=== PATIENT | male | born 1980 | race Caucasian/White ===

== ENCOUNTER → 2018-02-14 | Outpatient (CLI) | payer OTHER ==
--- NOTE | 2018-02-14 19:42 | CONS ---
CONSULTATION DATE OF SERVICE: 02/14/2018 37-year-old gentleman has been evaluated in [facility] for obstructive sleep apnea- hypopnea syndrome. HISTORY OF PRESENT ILLNESS/SLEEP-WAKE EVALUATION: Patient originally was diagnosed with obstructive sleep apnea about 8 or 9 years ago, was started on treatment with CPAP and then he underwent UPPP and surgery for nasal septum deviation around 7 years ago. After the surgery he did not have polysomnogram done, but had CPAP retitration. He tried to continue to use his CPAP equipment after that, but presently he cannot use it taking his mask off. His sleep schedule from 10:30 p.m. to 5 a.m. on weekdays and from around 11:00 p.m. to 8:30 a.m. on weekends. Sometimes he has problem with falling asleep, but not more than for 30 minutes. He has TV set in bedroom. He preferred to sleep on the stomach position. Does not like to sleep on the back or side. His weight for last several years increased at least 10 pounds. He does snore, has episodes of stopped breathing during the sleep, awakenings from sleep with choking, tears, heartburn, gasping for air, restless legs, and 1 episode of nocturia. In the morning he wakes up tired, has difficulties to pay attention, worry about his sleep, has problems with memory, concentration, diabetes, depression, anxiety. [place] Sleepiness Scale today is significantly increased to 20. PAST MEDICAL HISTORY: None. ALLERGIES: None. PAST SURGICAL HISTORY: Septoplasty in fall of 2009 and at UPPP in 2010. MEDICATIONS: None. SOCIAL HISTORY: Positive for smoking in the past for about 6 years, quit 10 years ago. Alcohol consumption occasional. FAMILY HISTORY: Hypertension, snoring, mental illness. REVIEW OF SYSTEMS: Awakenings from sleep, sleepiness during the day. PHYSICAL EXAM: GENERAL gentleman without distress. VITAL SIGNS BP 149/77, HR 78, RR 16, height 5 feet 8 inches, weight 214, BMI 32.5, temperature 98.1 oxygen saturation on room air 94%. HEENT PERRLA, EOMI, evaluation of oropharynx showed status post UPPP. No uvula. NECK Supple, no JVD. Thyroid is not palpable. LUNGS Clear to percussion and to auscultation. Good air exchange. No wheezing or rhonchi. HEART S1, S2 regular. No murmurs, gallops, or rubs. ABDOMEN Soft and nontender. Bowel sounds are present. No organomegaly appreciated. EXTREMITIES No clubbing or cyanosis. 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 Cranial nerves 2 to 7 intact. There is no fasciculation or atrophy. noted. No focal deficits observed. IMPRESSION: 1. Snoring, witnessed episodes of stopped breathing during the sleep, history of obstructive sleep apnea in the past. Obstructive sleep apnea-hypopnea syndrome. 2. Mild obesity, BMI 32.5. 3. Significant excessive daytime sleepiness. [place] Sleepiness Scale increased to 20. Differential diagnosis should include hypersomnia also. 4. Status post uvulopalatopharyngoplasty, tonsillectomy and surgery for nasal septum deviation about 7 years ago. PLAN: 1. Polysomnography for evaluation of patient's breathing during sleep. 2. CPAP/BiPAP titration if sleep study confirms obstructive sleep apnea-hypopnea syndrome. 3. Preferable position during sleep on the side. 4. No driving if patient feels any sleepiness. 5. I will see patient for follow up visit to explain results of testing and following plan. Thank you very much for referring this patient for consultation. Sincerely, Delmar Naranjo MD, PhD, FAASM Diplomat of [place] [employer] [place] [employer] Steel [employer] of [facility] [place] MMODL / ENDERN: [id number] /
== END | disposition home or self-care (01) ==
LOC: SLEEP 13:52
PROVIDERS: ATTEND Internal Medicine
DX: G47.33 Obstructive sleep apnea (adult) (pediatric) (principal); E66.01 Morbid (severe) obesity due to excess calories; Z90.89 Acquired absence of other organs; Z99.89 Dependence on other enabling machines and devices; Z87.891 Personal history of nicotine dependence
CPT/HCPCS: 99211

== ENCOUNTER → 2018-04-04 | Outpatient (CLI) | payer OTHER ==
--- NOTE | 2018-04-04 18:56 | PN ---
PROGRESS NOTE DATE OF SERVICE: 04/04/2018 37-year-old gentleman who has been followed in Sleep Center for treatment of obstructive sleep apnea-hypopnea syndrome. Recently patient had CPAP titration because of difficulties with exhalation. He was switched to BiPAP and subsequently finished titration with BiPAP. I ordered for him a new BiPAP unit recently. Patient trying to use his CPAP unit which is in the range of 11-15 cm of water. Automatic regimen but he can not use it because he has difficulties with exhalation. MEDICATIONS: None. PHYSICAL EXAM: Patient in no distress, BP 136/87, HR 59, RR 16, weight 218.4, temp 97.9 oxygen saturation room air 98%. [place] Sleepiness Scale today is 13. Oropharynx low position of soft palate. Neck: Supple, no JVD. Thyroid is not palpable. LUNGS Clear to percussion and to auscultation. Good air exchange. No wheezing or rhonchi. HEART S1, S2 regular. No murmurs, gallops, or rubs. ABDOMEN Soft and nontender. Bowel sounds are present. No organomegaly appreciated. EXTREMITIES No clubbing or cyanosis. 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 Cranial nerves 2 to 7 intact. There is no fasciculation or atrophy. noted. No focal deficits observed. IMPRESSION: 1. Obstructive sleep apnea-hypopnea syndrome. The patient has difficulties with CPAP machine. 2. Mild obesity, body mass index 32.8. 3. Recent upper respiratory infection with difficulties to breathe through the nose. 4. Status post uvulopalatopharyngoplasty, tonsillectomy and surgery for nasal septum deviation. PLAN: 1. Patient should receive BiPAP unit. I would recommend regimen with minimal expiratory pressure of 4 cm of water. Maximal inspiratory pressure 15 cm of water with a pressure support of 4. 2. Patient should start to use equipment and use it every night for the whole night. 3. Watching and losing weight. 4. Sleep hygiene with regular time in bed for at least 8 hours. 5. No driving if feeling sleepiness. 6. I will see patient in about 5 weeks after he will get his new BiPAP unit. Thank you very much for allowing me to participate in management of your patient. MMODL / IJN: [id number] /
== END | disposition home or self-care (01) ==
LOC: SLEEP 15:05
PROVIDERS: ATTEND Internal Medicine
DX: G47.33 Obstructive sleep apnea (adult) (pediatric) (principal); E66.9 Obesity, unspecified; J06.9 Acute upper respiratory infection, unspecified; Z98.890 Other specified postprocedural states; Z90.89 Acquired absence of other organs; Z99.89 Dependence on other enabling machines and devices

== ENCOUNTER → 2018-07-11 | Outpatient (CLI) | payer OTHER ==
--- NOTE | 2018-07-11 16:01 | PN ---
PROGRESS NOTE DATE OF SERVICE: 07/11/2018 This patient is a 37-year-old gentleman who has been followed in the sleep center for treatment of obstructive sleep apnea-hypopnea syndrome. The patient was started on treatment with BiPAP several months ago. He still has some problems with the usage of BiPAP equipment secondary to problems with his full-face mask. He feels some discomfort on his nose and possibly has some leak from the mask. At the same time, the patient feels better with the machine versus not using the machine. At present, maximal inspiratory pressure is 15 and minimal expiratory pressure is 4 with a pressure support of 4. Usage is 10/30 nights and 5/30 nights more than 4 hours. Average usage is 4.5 hours. Pressure in the machine is 11.7/7.7. Leak is 35 L/minute. Apnea-hypopnea index is 2.6, which is in normal range. PHYSICAL EXAMINATION: GENERAL: A pleasant patient in no distress. VITAL SIGNS: BP 134/76, HR 64, RR 16, weight 217, temperature 98.3, oxygen saturation at room air 97%. HEENT: PERRLA, EOMI. Evaluation of oropharynx showed tongue protrudes midline. Low position of soft palate. NECK: Supple. No JVD. Thyroid is not palpable. LUNGS: Clear to percussion and to auscultation. Good air exchange. No wheezing or rhonchi. HEART: S1, S2 regular. No murmurs, gallops or rubs. ABDOMEN: Soft and nontender. Bowel sounds are present. No organomegaly. EXTREMITIES: No clubbing or cyanosis. CURRICULUM DEVELOPMENT SPECIALIST: Awake, alert, and oriented X3. Cranial nerves 2 to 7 intact. There is no fasciculation or atrophy. noted. No focal deficits observed. IMPRESSION: 1. Obstructive sleep apnea-hypopnea syndrome. The patient is using his BiPAP equipment better than during the last visit but still has problems with his full- face mask. 2. Mild obesity. 3. Status post UPPP, tonsillectomy and surgery for nasal septum deviation. PLAN: 1. We will fit the patient with a DreamWear mask. 2. Patient will continue to use BiPAP every night for the whole night. I will decrease the maximal inspiratory pressure down to 13 cm of water. 3. Losing weight. 4. Sleep hygiene with regular time in bed for at least 8 hours. 5. No driving if feeling any sleepiness. Thank you very much for allowing me to participate in the management of your patient. Sincerely, Delmar Naranjo MD, PhD, FAASM Diplomat of [place] [employer] [place] [employer] General Office Associate of [facility] [place] MMODL / NATHANIEL: [id number] /
== END ==
LOC: SLEEP 14:31
PROVIDERS: ATTEND Internal Medicine
DX: G47.33 Obstructive sleep apnea (adult) (pediatric) (principal); E66.9 Obesity, unspecified; Z99.89 Dependence on other enabling machines and devices; Z98.890 Other specified postprocedural states

== ENCOUNTER 2024-01-11 14:19 | Emergency (ER) | payer MEDICARE, OTHER ==
[2024-01-11 14:30] VITALS: RESP 18; TEMP 97.7
--- NOTE | 2024-01-11 14:48 | ED ---
General Adult HPI - General Chief complaint: Abdominal Pain Stated complaint: Abd pain Time Seen by Provider: 01/11/24 14:29 Source: patient, EMS, RN notes reviewed Mode of arrival: EMS Limitations: no limitations - History of Present Illness Initial comments: Patient is a 43-year-old male presenting to the emergency department with concerns for left flank pain. Onset of symptoms was today. Discomfort starts left posterior flank and extends her left abdomen. No nausea or vomiting. No fever. Patient does have history of similar symptoms multiple times previously, approximately a dozen. - Related Data Home Medications Medication Instructions Recorded Confirmed Dextroamphetamine/Amphetamine 20 mg PO DAILY 01/11/24 01/11/24 [Adderall Xr 20 mg Capsule] Omeprazole [PriLOSEC] 20 mg PO BID 01/11/24 01/11/24 lisinopriL [Zestril] 20 mg PO DAILY 01/11/24 01/11/24 Previous Rx's Medication Instructions Recorded Ketorolac [Toradol] 10 mg PO Q6HR PRN #15 tab 01/11/24 Allergies Allergy/AdvReac Type Severity Reaction Status Date / Time No Known Allergies Allergy Verified 01/11/24 15:35 Review of Systems ROS Statement: Those systems with pertinent positive or pertinent negative responses have been documented in the HPI. ROS Other: All systems not noted in ROS Statement are negative. Constitutional: Denies: fever Eyes: Denies: eye pain ENT: Denies: ear pain Respiratory: Denies: dyspnea Cardiovascular: Denies: chest pain Endocrine: Denies: fatigue Gastrointestinal: Reports: as per HPI, abdominal pain. Denies: vomiting Genitourinary: Denies: dysuria Musculoskeletal: Reports: as per HPI Neurological: Denies: weakness Past Medical History Past Medical History: Hypertension Additional Past Medical History / Comment(s): kidney stones History of Any Multi-Drug Resistant Organisms: None Reported Past Surgical History: Hernia Repair Past Psychological History: ADD/ADHD Smoking Status: Former smoker Past Alcohol Use History: Rare Past Drug Use History: None Reported General Exam Limitations: no limitations General appearance: alert Head exam: Present: normocephalic Eye exam: Present: normal appearance Neck exam: Present: normal inspection Respiratory exam: Present: normal lung sounds bilaterally Cardiovascular Exam: Present: regular rate, normal rhythm Expanded Peripheral pulses: 2+: Dorsalis Pedis (R), Dorsalis Pedis (L) GI/Abdominal exam: Present: soft, tenderness (Mild tenderness left flank). Absent: distended, guarding, pulsatile mass Extremities exam: Present: normal inspection Neurological exam: Present: alert Psychiatric exam: Present: normal affect, normal mood Skin exam: Present: normal color Course Vital Signs 01/11/24 01/11/24 14:23 16:17 Temperature 97.7 F Pulse Rate 54 L 60 Respiratory 18 18 Rate Blood Pressure 134/86 137/83 O2 Sat by Pulse 97 98 Oximetry Medical Decision Making - Medical Decision Making Was pt. sent in by a medical professional or institution (, PA, GAMBLING BOX PERSON, urgent care, hospital, or long-term...) When possible be specific @ -No Did you speak to anyone other than the patient for history (EMS, parent, family, police, friend...)? What history was obtained from this source @ -No Did you review nursing and triage notes (agree or disagree)? Why? @ -I reviewed and agree with nursing and triage notes Were old charts reviewed (outside hosp., previous admission, EMS record, old EKG, old radiological studies, urgent care reports/EKG's, long-term records)? Report findings @ -No old charts were reviewed Differential Diagnosis (chest pain, altered mental status, abdominal pain women, abdominal pain men, vaginal bleeding, weakness, fever, dyspnea, syncope, headac he, dizziness, GI bleed, back pain, seizure, CVA, palpatations, mental health, musculoskeletal)? @ -Differential Abdominal Pain Men: Appendicitis, cholecystitis, diverticulosis, ischemic bowel, pancreatitis, hepatitis, UTI, gastroenteritis, AAA, incarcerated hernia, bowel obstruction, constipation, inflammatory bowel, hepatitis, peptic ulcer disease, splenic infarction, perforated viscus, testicular torsion, this is not meant to be an all-inclusive list EKG interpreted by me (3pts min.). @ -As above X-rays interpreted by me (1pt min.). @ -KUB shows delayed excretion left renal system CT interpreted by me (1pt min.). @ -CT scan shows stone left UVJ with mild hydronephrosis and hydroureter. U/S interpreted by me (1pt. min.). @ -None done What testing was considered but not performed or refused? (CT, X-rays, U/S, labs)? Why? @ -None What meds were considered but not given or refused? Why? @ -None Did you discuss the management of the patient with other professionals (professionals i.e. , PA, GAMBLING BOX PERSON, lab, RT, psych nurse, social sciences instructor, neurology hospitalist, teacher, contracting officer, caseworker)? Give summary @ -No Was smoking cessation discussed for >3mins.? @ -No Was critical care preformed (if so, how long)? @ -No Were there social determinants of health that impacted care today? How? (Homelessness, low income, unemployed, alcoholism, drug addiction, transportation, low edu. Level, literacy, decrease access to med. care, snf, rehab)? @ -No Was there de-escalation of care discussed even if they declined (Discuss DNR or withdrawal of care, Hospice)? DNR status @ -No What co-morbidities impacted this encounter? (DM, HTN, Smoking, COPD, CAD, Cancer, CVA, ARF, Chemo, Hep., AIDS, mental health diagnosis, sleep apnea, morbid obesity)? @ -Kidney stone history Was patient admitted / discharged? Hospital course, mention meds given and route, prescriptions, significant lab abnormalities, going to OR and other pertinent info. @ -Patient presents with left flank pain consistent with previous kidney stones, positive stone on CT. Patient feels better and would like to be disc harged at this time. Undiagnosed new problem with uncertain prognosis? @ -No Drug Therapy requiring intensive monitoring for toxicity (Heparin, Nitro, Insulin, Cardizem)? @ -No Were any procedures done? @ -No Diagnosis/symptom? @ -Ureterolithiasis Acute, or Chronic, or Acute on Chronic? @ -Acute Uncomplicated (without systemic symptoms) or Complicated (systemic symptoms)? @ -Default Side effects of treatment? @ -No Exacerbation, Progression, or Severe Exacerbation? @ -No Poses a threat to life or bodily function? How? (Chest pain, [place], [place], pneumonia, PE, COPD, DKA, ARF, appy, cholecystitis, CVA, Diverticulitis, Homicidal, Suicidal, threat to staff... and all critical care pts) @ -No - Lab Data Result diagrams: 01/11/24 14:55 01/11/24 14:55 Lab Results 06/21/24 06/21/24 06/21/24 Range/Units 14:55 14:55 14:55 WBC 13.7 H (3.8-10.6) k/uL RBC 4.50 (4.30-5.90) m/uL Hgb 13.3 (13.0-17.5) gm/dL Hct 39.2 (39.0-53.0) % MCV 87.1 (80.0-100.0) fL MCH 29.5 (25.0-35.0) pg MCHC 33.8 (31.0-37.0) g/dL RDW 13.6 (11.5-15.5) % Plt Count 230 (150-450) k/uL MPV 7.8 Neutrophils % 82 % Lymphocytes % 11 % Monocytes % 5 % Eosinophils % 1 % Basophils % 1 % Neutrophils # 11.2 H (1.3-7.7) k/uL Lymphocytes # 1.5 (1.0-4.8) k/uL Monocytes # 0.6 (0-1.0) k/uL Eosinophils # 0.1 (0-0.7) k/uL Basophils # 0.1 (0-0.2) k/uL PT 10.8 (10.0-12.5) sec INR 1.0 (<1.2) APTT 22.3 (22.0-30.0) sec Sodium 137 (137-145) mmol/L Potassium 3.8 (3.5-5.1) mmol/L Chloride 107 (98-107) mmol/L Carbon Dioxide 21 L (22-30) mmol/L Anion Gap 9 mmol/L BUN 23 H (9-20) mg/dL Creatinine 1.02 (0.66-1.25) mg/dL Est GFR (CKD-EPI)AfAm >90 (>60 ml/min/1.73 sqM) Est GFR (CKD-EPI)NonAf >90 (>60 ml/min/1.73 sqM) Glucose 150 H (74-99) mg/dL Calcium 9.3 (8.4-10.2) mg/dL Total Bilirubin 1.2 (0.2-1.3) mg/dL AST 30 (17-59) U/L ALT 34 (4-49) U/L Alkaline Phosphatase 77 (38-126) U/L Total Protein 7.0 (6.3-8.2) g/dL Albumin 4.5 (3.5-5.0) g/dL Amylase 43 (30-110) U/L Lipase 40 (23-300) U/L Urine Color Urine Appearance (Clear) Urine pH (5.0-8.0) Ur Specific [place] (1.001-1.035) Urine Protein (Negative) Urine Glucose (UA) (Negative) Urine Ketones (Negative) Urine Blood (Negative) Urine Nitrite (Negative) Urine Bilirubin (Negative) Urine Urobilinogen (<2.0) mg/dL Ur Leukocyte Esterase (Negative) Urine RBC (0-5) /hpf Urine WBC (0-5) /hpf Urine Mucus (None) /hpf 01/11/24 Range/Units 14:55 WBC (3.8-10.6) k/uL RBC (4.30-5.90) m/uL Hgb (13.0-17.5) gm/dL Hct (39.0-53.0) % MCV (80.0-100.0) fL MCH (25.0-35.0) pg MCHC (31.0-37.0) g/dL RDW (11.5-15.5) % Plt Count (150-450) k/uL MPV Neutrophils % % Lymphocytes % % Monocytes % % Eosinophils % % Basophils % % Neutrophils # (1.3-7.7) k/uL Lymphocytes # (1.0-4.8) k/uL Monocytes # (0-1.0) k/uL Eosinophils # (0-0.7) k/uL Basophils # (0-0.2) k/uL PT (10.0-12.5) sec INR (<1.2) APTT (22.0-30.0) sec Sodium (137-145) mmol/L Potassium (3.5-5.1) mmol/L Chloride (98-107) mmol/L Carbon Dioxide (22-30) mmol/L Anion Gap mmol/L BUN (9-20) mg/dL Creatinine (0.66-1.25) mg/dL Est GFR (CKD-EPI)AfAm (>60 ml/min/1.73 sqM) Est GFR (CKD-EPI)NonAf (>60 ml/min/1.73 sqM) Glucose (74-99) mg/dL Calcium (8.4-10.2) mg/dL Total Bilirubin (0.2-1.3) mg/dL AST (17-59) U/L ALT (4-49) U/L Alkaline Phosphatase (38-126) U/L Total Protein (6.3-8.2) g/dL Albumin (3.5-5.0) g/dL Amylase (30-110) U/L Lipase (23-300) U/L Urine Color Yellow Urine Appearance Clear (Clear) Urine pH 5.5 (5.0-8.0) Ur Specific [place] 1.029 (1.001-1.035) Urine Protein Trace H (Negative) Urine Glucose (UA) Negative (Negative) Urine Ketones Negative (Negative) Urine Blood Large H (Negative) Urine Nitrite Negative (Negative) Urine Bilirubin Negative (Negative) Urine Urobilinogen <2.0 (<2.0) mg/dL Ur Leukocyte Esterase Negative (Negative) Urine RBC >182 H (0-5) /hpf Urine WBC 4 (0-5) /hpf Urine Mucus Moderate H (None) /hpf Disposition Clinical Impression: Ureterolithiasis Disposition: HOME SELF-CARE Condition: Stable Instructions (If sedation given, give patient instructions): Kidney Stones (ED) Additional Instructions: Prescription sent to pharmacy. Please do follow-up with your primary care physician in the next couple days for recheck. Return for increased pain, vomiting, fever, worsening or changing symptoms or other concerns. Prescriptions: Ketorolac [Toradol] 10 mg PO Q6HR PRN #15 tab PRN Reason: Pain Is patient prescribed a controlled substance at d/c from ED?: No Referrals: [facility],Clinic [Primary Care Provider] - 1-2 days Time of Disposition: 16:59
[2024-01-11] MEDS: SODIUM CHLORIDE 0.9% 1,000 ML IV STA (15:01)
[2024-01-11] MEDS: KETOROLAC 15 MG/ML 1 ML VIAL IVP STA (15:01)
[2024-01-11 15:13] LABS: Basophils # (A) 0.1 k/uL (0-0.2); Basophils % (A) 1 %; Eosinophils # (A) 0.1 k/uL (0-0.7); Eosinophils % (A) 1 %; HCT 39.2 % (39.0-53.0); HGB 13.3 gm/dL (13.0-17.5); Lymphocytes # (A) 1.5 k/uL (1.0-4.8); Lymphocytes % (A) 11 %; MCH 29.5 pg (25.0-35.0); MCHC 33.8 g/dL (31.0-37.0); MCV 87.1 fL (80.0-100.0); Mean Platelet Volume 7.8; Monocytes # (A) 0.6 k/uL (0-1.0); Monocytes % (A) 5 %; Neutrophils # (A) 11.2 k/uL (1.3-7.7); Neutrophils % (A) 82 %; Platelet Count 230 k/uL (150-450); RDW 13.6 % (11.5-15.5); WBC 13.7 k/uL (3.8-10.6)
[2024-01-11 15:14] LABS: ALT 34 U/L (4-49); AST 30 U/L (17-59); African American GFR (CKD) >90 (>60 ml/min/1.73 sqM); Albumin 4.5 g/dL (3.5-5.0); Alkaline Phosphatase 77 U/L (38-126); Amylase 43 U/L (30-110); Anion Gap 9 mmol/L; Blood Urea Nitrogen 23 mg/dL (9-20); Calcium 9.3 mg/dL (8.4-10.2); Carbon Dioxide 21 mmol/L (22-30); Chloride 107 mmol/L (98-107); Glucose 150 mg/dL (74-99); Lipase 40 U/L (23-300); Non-African American GFR(CKD) >90 (>60 ml/min/1.73 sqM); Potassium 3.8 mmol/L (3.5-5.1); Sodium 137 mmol/L (137-145); Total Bilirubin 1.2 mg/dL (0.2-1.3)
[2024-01-11 15:32] LABS: Partial Thromboplastin Time 22.3 sec (22.0-30.0); Prothrombin Time 10.8 sec (10.0-12.5)
[2024-01-11 15:33] LABS: Appearance,Urine Clear (Clear); Bilirubin,Urine Negative (Negative); Blood,Urine Large (Negative); Color,Urine Yellow; Glucose,Urine (UA) Negative (Negative); Ketones,Urine Negative (Negative); Leukocyte Esterase,Urine Negative (Negative); Mucus,Urine Moderate /hpf; Nitrite,Urine Negative (Negative); PH, Urine 5.5 (5.0-8.0); Protein,Urine Trace (Negative); RBC,Urine >182 /hpf (0-5); Specific Gravity,Urine 1.029 (1.001-1.035); Urobilinogen,Urine <2.0 mg/dL (<2.0); WBC,Urine 4 /hpf (0-5)
--- NOTE | 2024-01-11 15:39 | CT ---
EXAMINATION TYPE: CT abdomen pelvis w con DATE OF EXAM: 01/11/2024 COMPARISON: None HISTORY: lower abdominal pain CT DLP: 1260.7 mGycm CONTRAST: CT scan of the abdomen and pelvis is performed without Oral Contrast and with IV Contrast, patient in jected with 100 mL of Isovue 300. FINDINGS: LUNG BASES-: No visible nodule. No infiltrate. Small fixed hiatal hernia. LIVER/GB: No calcified gallstones. No space occupying hepatic lesion. Biliary tree is of normal ca liber. PANCREAS: No inflammation. No distinct mass. SPLEEN: No splenic enlargement. No lesion seen. ADRENALS: No nodule. No thickening. KIDNEYS/BLADDER: There is a 2.5 mm calculus at the left UVJ which is nearly passed resulting in mild left-sided hydroureteronephrosis. There is mild left renal edema. No additional calculi are seen with in either kidney. No distinct renal mass. Urinary bladder grossly unremarkable. BOWEL: Normal appendix. Normal bowel caliber. No inflammation. GENITAL ORGANS: No gross abnormality. LYMPH NODES: No greater than 1cm abdominal or pelvic lymph nodes are appreciated. AORTA: No significant abnormality. OSSEOUS STRUCTURES: No significant abnormality is seen. OTHER: No significant additional abnormality is seen. IMPRESSION: 1. There is a 2.5 mm calculus at the left UVJ which is nearly passed resulting in mild left-sided hyd roureteronephrosis. There is mild left renal edema.
--- NOTE | 2024-01-11 15:40 | XR ---
EXAMINATION TYPE: XR KUB DATE OF EXAM: 01/11/2024 COMPARISON: NONE HISTORY: Pain TECHNIQUE: Single supine KUB image of the abdomen is obtained FINDINGS: Small bowel demonstrates no evidence for dilatation or air fluid levels. Gas and fecal material is seen in non-distended colon. No convincing evidence for pneumoperitoneum. Contrast from prior CT of the abdomen and pelvis. There is delayed excretion from the left kidney consistent with the left UVJ calculus seen at CT. No unusual calcifications. The lung bases are clear. The osseous structures are intact. IMPRESSION: 1. Contrast from prior CT of the abdomen and pelvis. There is delayed excretion from the left kidney consistent with the left UVJ calculus seen at CT.
[2024-01-11] MEDS: SODIUM CHLORIDE 0.9% 500 ML 500 ML IV STA (16:19)
[2024-01-11] MEDS: HYDROmorphone 0.5 MG/0.5 ML SYRINGE IVP STA (16:20)
[2024-01-11 17:34] VITALS: BP 134/88; PULSE 81
== END 2024-01-11 17:35 | disposition home or self-care (01) ==
LOC: EC 14:19
DX: N13.2 Hydronephrosis with renal and ureteral calculous obstruction (principal); Z87.891 Personal history of nicotine dependence
CPT/HCPCS: 99285; 96374; 96375; 96361 ×3; 36415; 80053; 82150; 83690; 85025; 85610; 85730; 81001; 74018; 74177; J1885; J1170; Q9967